=== PATIENT | male | born 1950 | race African-American/Black ===

== ENCOUNTER 2021-04-08 12:01 | Inpatient (IN) | payer OTHER, MEDICAID ==
[~2021-04-08] VITALS: Ht 177.8 cm; Wt 99.3 kg
--- NOTE | 2021-04-08 12:01 | NUR ---
BIBA TO BED 4
[2021-04-08 12:05] VITALS: BP 162/53
--- NOTE | 2021-04-08 12:15 | NUR ---
70 Y/O MALE BIBA FROM HOME C/O BLOOD CLOTS IN URINE X2 DAYS. PT WAS SEEN AT [facility] YESTERDAY FOR SAME COMPLAINT. PT WAS SENT HOME WITH MCF[place]LAND. PT PRESENTS WITH BLOOD IN MCF[place]LAND AND BLOOD COMING OUT OF [place]. PT LAST HAD RADIATION ON PROSTATE 08/01 AND STATES THAT HE HAS INTERMITTENT BLOOD CLOTS. PT REPORTS PAIN DURING URINATION BUT DENIES PAIN AT THIS MOMENT. PT HAS BILATERAL LOWER LEG +2 PITTING EDEMA. PT AMBULATES WITH WALKER. PT A/O X4 WITH EVEN AND UNLABORED RESPIRATIONS. PT IN GOWN ON MANAGER LAN. PMH:BIPASS, VALVE REPLACEMENT, HTN, PROSTATE CANCER, CVA- LEFT SIDED DEFICIT NKDA
--- NOTE | 2021-04-08 12:24 | NUR ---
DR HELTON AT BEDSIDE EVALUATING PT
--- NOTE | 2021-04-08 13:36 | NUR ---
UA SENT TO LAB
--- NOTE | 2021-04-08 13:48 | NUR ---
LAB AT BEDSIDE
[2021-04-08 14:37] LABS: BILIRUBIN,URINE 2+ (NEGATIVE); BLOOD, URINE 3+ (NEGATIVE); LEUKOCYTE ESTERASE ,URINE 2+ (NEGATIVE); NITRITE, URINE POSITIVE (NEGATIVE); PH,URINE 7.5 (5.0-9.0); UGLUCOSE TRACE (NEGATIVE)
[2021-04-08 14:37] LABS: PROTHROMBIN TIME 13.4 secs (10.8-13.4)
[2021-04-08 14:38] LABS: ALBUMIN 2.9 g/dL (3.4-5.0); ANION GAP 14.7 (8-16); ASPARTATE AMINOTRANSFERASE 14 U/L (15-37); BASOPHILS % (AUTO) 0.2 % (0.0-2.0); CHLORIDE 100 mmol/L (98-107); EOSINOPHILS % (AUTO) 0.1 % (0.0-4.0); GLUCOSE 100 mg/dL (74-106); HEMATOCRIT 26.9 % (36-52); HEMOGLOBIN 8.4 g/dL (12.0-18.0); LYMPHOCYTES # (AUTO) 0.6 K/uL (2.0-11.5); LYMPHOCYTES % (AUTO) 3.6 % (20.5-51.1); MEAN CORPUSCULAR HEMOGLOBIN 22 pg (27-31); MEAN CORPUSCULAR HGB CONC 31 g/dL (33-37); MEAN CORPUSCULAR VOLUME 69.4 fL (80-94); MONOCYTES # (AUTO) 1.2 K/uL (0.8-1.0); MONOCYTES % (AUTO) 7.2 % (1.7-9.3); NEUTROPHILS % (AUTO) 88.9 % (42.2-75.2); PLATELET COUNT (AUTO) 331 K/uL (140-450); POTASSIUM 3.7 mmol/L (3.5-5.1); RED BLOOD CELL COUNT(AUTO) 3.87 MIL/uL (4.20-6.10); RED CELL DISTRIBUTION WIDTH 23.8 % (11.6-13.7); SODIUM SERUM 137 mmol/L (136-145); TOTAL BILIRUBIN 0.4 mg/dL (0.0-1.0); WHITE BLOOD COUNT (AUTO) 16.9 K/uL (4.8-10.8)
[2021-04-08 14:40] LABS: UREA NITROGEN, BLOOD 61 mg/dL (7-18)
[2021-04-08 14:42] LABS: APPEARANCE,URINE BLOODY (CLEAR); COLOR,URINE RED (YELLOW)
[2021-04-08 14:52] LABS: RBC,URINE TOO NUMEROUS TO COUN /HPF (0-5)
[2021-04-08] MEDS ORDERED: cefTRIAXone 2,000 MG in DEXTROSE 5% 100 ML IV ONE (14:55)
--- NOTE | 2021-04-08 15:01 | NUR ---
PT RESTING IN BED WITH EVEN AND UNLABORED RESPIRATIONS. PT ON REGISTERED ROUTE ASSOCIATE. VSS. PT GIVEN CUP OF WATER. WILL CONTINUE TO MONITOR
[2021-04-08] MEDS ORDERED: cefTRIAXone 2,000 MG VIAL ONE (15:43)
[2021-04-08] MEDS ORDERED: ACETAMINOPHEN 325 MG TAB PO ONE (15:45)
--- NOTE | 2021-04-08 15:55 | NUR ---
PT C/O PAIN AND REQUESTING PAIN MEDICATION, DR GODOY MADE AWARE
[2021-04-08] MEDS ORDERED: ZOLPIDEM 5 MG TAB PO PRN (16:00)
[2021-04-08] MEDS ORDERED: guaiFENesin DM 200/20 MG-10 ML 10 ML UDC PO PRN (16:00)
[2021-04-08] MEDS ORDERED: ACETAMINOPHEN EXTRA STRENGTH 500 MG TAB PO ONE (16:00)
[2021-04-08] MEDS ORDERED: DOCUSATE SODIUM 100 MG GELCAP PO PRN (16:00)
[2021-04-08] MEDS ORDERED: ONDANSETRON 4 MG/2 ML VIAL IM/IVP PRN (16:00)
[2021-04-08] MEDS: NACL 0.9% 1,000 ML IV SCH (16:00)
[2021-04-08] MEDS ORDERED: ACETAMINOPHEN EXTRA STRENGTH 500 MG TAB ONE (16:02)
--- NOTE | 2021-04-08 16:04 | NUR ---
RAD AT BEDSIDE
[2021-04-08] MEDS ORDERED: NACL 0.9% 1,000 ML IV ONE (16:05)
--- NOTE | 2021-04-08 16:51 | NUR ---
REPORT GIVEN TO FLORA ROMERO FOR ADMISSION TO [facility]
--- NOTE | 2021-04-08 17:00 | NUR ---
Patient will be admitted to care of DR HAN. Admited to [facility]. Will go to room 122A. Belongings list completed. Report to FLORA ROMERO.
[2021-04-08] MEDS ORDERED: RIVA15TA1 PO (17:02)
[2021-04-08] MEDS ORDERED: AMLO5TAB PO (17:02)
[2021-04-08] MEDS ORDERED: LOSA100T1 PO (17:02)
--- NOTE | 2021-04-08 17:15 | NUR ---
RECEIVED REPORT FROM ER NURSE ON PT. AWAITING ARRIVAL TO UNIT.
--- NOTE | 2021-04-08 17:30 | NUR ---
PT ARRIVED TO UNIT. PT CONDITION IS STABLE. PT ARRIVED VIA GURNEY BY ER NURSE. PT HAS PATENT LAC IV ACCESS. PT HAS MCF[place]LAND INSERTED FROM [facility]. ORDER TO INSERT TRIPLE LUMEN CATHETER. PT IS AA&OX4 AND AMBULATORY WITH UNSTEADY GAIT DUE TO PREVIOUS STROKE WITH L-SIDE WEAKNESS. PT CAN AMBULATE WITH WALKER INDEPENDENTLY, OR WITH ASSISTANCE WITHOUT WALKER. SAFETY MEASURES IN PLACE.
[2021-04-08 18:19] LABS: BARBITURATE, URINE NEGATIVE ng/ml (NEG <=200); BENZODIAZEPINE, URINE NEGATIVE ng/mL (NEG <=200); CANNABINOID, URINE NEGATIVE ng/mL (NEG <=50); COCAINE, URINE NEGATIVE ng/mL (NEG <=300); OPIATE, URINE POSITIVE ng/mL (NEG <=2000); PHENCYCLIDINE SCREEN,URINE NEGATIVE ng/mL (NEG <=25)
[2021-04-08 18:24] LABS: CHOL/HDL RATIO 2.7 (1-4.5); FREE T4 (FREE THYROXINE) 1.32 ng/dL (0.76-1.46); MAGNESIUM 2.2 mg/dL (1.8-2.4); PHOSPHORUS 7.4 mg/dL (2.5-4.9); THYROID STIMULATING HORMONE 0.95 uIU/mL (0.34-3.74)
[2021-04-08 18:36] LABS: PROTHROMBIN TIME 12.7 secs (10.8-13.4)
--- NOTE | 2021-04-08 19:31 | NUR ---
GAVE CHANGE OF SHIFT REPORT TO NIGHT NURSE AT BEDSIDE FOR CONTINUITY OF CARE. PT STABLE. DISCUSSED POC.
[2021-04-08] MEDS: HYDROcodone/APAP 7.5/325 MG 1 TAB PO PRN (20:25)
[2021-04-08 20:58] VITALS: BP 139/74
[2021-04-08] MEDS: ACETAMINOPHEN 325 MG TAB PO PRN (21:35)
[2021-04-09] VITALS: BP 128/68
--- NOTE | 2021-04-09 00:05 | NUR ---
I RECEIVED PT IN BED ALERT ORIENTED X4 ON RA CLEAR LUNGS , ON IVF SITE INTACT , SKIN IS INTACT ,I INSERTED A3WAY CMFARLAND CATHETE AND STARTED CONTIOUS BLADDER IRRIGATION FOR HEAMATULIA C/O LOWER ABDOMEN PAIN AND LACK OF SLEEP I GAVE HIM SHWETA AND GAUTAM
[2021-04-09] MEDS: NACL 0.9% 1,000 ML IV SCH ×3 (00:20→17:29)
[2021-04-09] MEDS: HYDROcodone/APAP 7.5/325 MG 1 TAB PO PRN (01:50)
[2021-04-09 04:00] VITALS: BP 130/70
--- NOTE | 2021-04-09 05:27 | NUR ---
PT SLEPT WELL WHEN HIS PAIN WAS WELL CONTROLLED ,VSS AM CARE GIVEN LINEN CHANGED , ON CONTIOS BLADER IRRIGATION URINE IS BLOODY
[2021-04-09 05:51] LABS: BASOPHILS % (AUTO) 0.3 % (0.0-2.0); EOSINOPHILS # (AUTO) 0.1 K/uL (0-0.4); EOSINOPHILS % (AUTO) 0.7 % (0.0-4.0); HEMATOCRIT 22.5 % (36-52); HEMOGLOBIN 7.2 g/dL (12.0-18.0); LYMPHOCYTES # (AUTO) 0.6 K/uL (2.0-11.5); MONOCYTES # (AUTO) 0.9 K/uL (0.8-1.0); MONOCYTES % (AUTO) 8.5 % (1.7-9.3); PLATELET COUNT (AUTO) 292 K/uL (140-450); WHITE BLOOD COUNT (AUTO) 10.1 K/uL (4.8-10.8)
[2021-04-09 05:52] LABS: ANION GAP 13.7 (8-16); CARBON DIOXIDE 24.2 mmol/L (21-32); CHLORIDE 103 mmol/L (98-107); GLUCOSE 82 mg/dL (74-106); SODIUM SERUM 138 mmol/L (136-145)
[2021-04-09] MEDS: POTASSIUM CHLORIDE 10 MEQ TABER PO PRN (06:23)
[2021-04-09 06:25] LABS: LYMPHOCYTES % (AUTO) 5.9 % (20.5-51.1); MEAN CORPUSCULAR HEMOGLOBIN 22 pg (27-31); MEAN CORPUSCULAR HGB CONC 32 g/dL (33-37); MEAN CORPUSCULAR VOLUME 69.5 fL (80-94); NEUTROPHILS # (AUTO) 8.6 K/uL (1.8-7.7); NEUTROPHILS % (AUTO) 84.6 % (42.2-75.2); POTASSIUM 2.9 mmol/L (3.5-5.1); RED BLOOD CELL COUNT(AUTO) 3.24 MIL/uL (4.20-6.10); UREA NITROGEN, BLOOD 67 mg/dL (7-18)
[2021-04-09 06:26] LABS: CREATININE 4.5 mg/dL (0.6-1.3)
--- NOTE | 2021-04-09 06:37 | NUR ---
PT S P IS 2.9 I GAVE HIM KCL 40MEQ AND HER BUN 67 CREAT 4.5 I WILL PASS REPORT TO DAY NURSE TO NOTIFY THE DOCTOR
[2021-04-09 08:00] VITALS: BP 111/51
[2021-04-09] MEDS ORDERED: KCL 20 MEQ/WATER INJ PREMIX 200 ML IV SCH (09:00)
[2021-04-09] MEDS ORDERED: FERR325E14 PO (10:01)
[2021-04-09] MEDS: PANTOPRAZOLE 40 MG TABEC PO SCH (10:39)
--- NOTE | 2021-04-09 10:40 | NUR ---
SCHEDULED MEDICATIONS DUE GIVEN. WILL CONTINUE TO MONITOR.
--- NOTE | 2021-04-09 10:42 | NUR ---
PATIENT HAS BEEN SCREENED AND CATEGORIZED MODERATE NUTRITION RISK. PATIENT WILL BE SEEN WITHIN 3-5 DAYS OF ADMISSION. 04/10/21 04/12/[address]
[2021-04-09 12:08] LABS: T4 (THYROXINE) 8.2 ug/dL (4.5-12.0)
[2021-04-09 16:00] VITALS: BP 117/55
--- NOTE | 2021-04-09 18:21 | NUR ---
TEMP 100.4, TYLENOL GIVEN AT THIS TIME. WILL HOLD OFF ON 1 UNIT PRBC AT THIS TIME UNTIL TEMP DECREASES
[2021-04-09] MEDS: ACETAMINOPHEN 325 MG TAB PO PRN ×2 (18:22→23:36)
--- NOTE | 2021-04-09 19:00 | NUR ---
PATIENT RECEIVED IN BED ALERT AND ORIENTED X 4. RN EDUCATED PATIENT TO MEDICAL PLAN OF CARE, MEDICATION REGIMEN, FALL AND SAFETY INTERVENTIONS AND MEDICAL CARE. [address] [place] CATH IN PLACE. PATIENT REQUIRES 2 PERSON ASSISTANCE. PT CXR NOTED FOR PNEUMONIA. RAPID RESULTS NOTED NEGATIVE. 22G TO RFA. PATENT AND IN PLACE. NO ACUTE DISTRESS NOTED. PATIENT RECEPTIVE TO RN INSTRUCTIONS. WILL CONTINUE WITH MEDICAL PLAN OF CARE.
--- NOTE | 2021-04-09 19:22 | NUR ---
GAVE REPORT TO BUSINESS SYSTEMS ANALYST NURSE FOR CONTINUITY OF CARE. PATIENT IN STABLE CONDITION.
[2021-04-09 23:00] VITALS: BP 126/68
[2021-04-10] MEDS: NACL 0.9% 1,000 ML IV SCH ×3 (00:38→17:23)
[2021-04-10] MEDS: ACETAMINOPHEN 325 MG TAB PO PRN (04:16)
[2021-04-10 06:18] LABS: ANION GAP 16.2 (8-16); CARBON DIOXIDE 22.2 mmol/L (21-32); CHLORIDE 106 mmol/L (98-107); CREATININE 3.5 mg/dL (0.6-1.3); GLUCOSE 108 mg/dL (74-106); POTASSIUM 3.4 mmol/L (3.5-5.1); SODIUM SERUM 141 mmol/L (136-145)
[2021-04-10 06:25] LABS: BASOPHILS % (AUTO) 0.3 % (0.0-2.0); EOSINOPHILS # (AUTO) 0.3 K/uL (0-0.4); EOSINOPHILS % (AUTO) 2.4 % (0.0-4.0); HEMATOCRIT 26.7 % (36-52); HEMOGLOBIN 8.7 g/dL (12.0-18.0); LYMPHOCYTES # (AUTO) 0.7 K/uL (2.0-11.5); LYMPHOCYTES % (AUTO) 6.3 % (20.5-51.1); MEAN CORPUSCULAR HEMOGLOBIN 23 pg (27-31); MEAN CORPUSCULAR HGB CONC 33 g/dL (33-37); MEAN CORPUSCULAR VOLUME 70.3 fL (80-94); MONOCYTES % (AUTO) 8.4 % (1.7-9.3); NEUTROPHILS # (AUTO) 9.4 K/uL (1.8-7.7); NEUTROPHILS % (AUTO) 82.6 % (42.2-75.2); PLATELET COUNT (AUTO) 336 K/uL (140-450); RED CELL DISTRIBUTION WIDTH 24.4 % (11.6-13.7); WHITE BLOOD COUNT (AUTO) 11.4 K/uL (4.8-10.8)
[2021-04-10] MEDS: HYDROcodone/APAP 7.5/325 MG 1 TAB PO PRN ×2 (06:41→14:59)
--- NOTE | 2021-04-10 07:45 | NUR ---
Patient's urinary cath is clogged and not draining. Resolved with milking cath and repositioning patient. Small blood clots drained to collection bag. No bladder distention noted.
[2021-04-10 08:00] VITALS: BP 151/72
[2021-04-10 08:06] LABS: UREA NITROGEN, BLOOD 71 mg/dL (7-18)
[2021-04-10] MEDS: ATORVASTATIN 20 MG TAB PO SCH ×3 (09:00→21:46)
[2021-04-10] MEDS: PANTOPRAZOLE 40 MG TABEC PO SCH (09:04)
[2021-04-10] MEDS: FERROUS SULFATE 325 MG TABEC PO SCH (09:04)
[2021-04-10] MEDS: amLODIPine 5 MG TAB PO SCH (09:04)
[2021-04-10] MEDS: LOSARTAN 50 MG TAB PO SCH (09:04)
--- NOTE | 2021-04-10 13:51 | NUR ---
MULTIPLE ATTEMPTS TO SEE PATIENT FOR PHYSICAL THERAPY TREATMENT HOWEVER PATIENT CONTINUES REFUSAL STATING HE IS FEELING TOO TIRED AND HAS NOT SLEPT IN THE PAST 3 DAYS. DID NOT EAT LUNCH AND REQUESTS MORE TIME SLEEPING. WILL FOLLOW UP TOMORROW IF APPROPRIATE; RN AWARE.
--- NOTE | 2021-04-10 15:00 | NUR ---
Luna not draining. Attempted to milk cath and pull clots, still not draining. Dr Knapp with order to change 3-way luna. Old cath removed, placed new 3-way luna cath via aseptic technique. Connected to CBI with NS. Cath draining well with dark red output and few blood clots. No bladder distention. Patient denies any discomfort.
--- NOTE | 2021-04-10 15:57 | NUR ---
DC PLANNING: ADRIANA SPOKE WITH THE PATIENT AT BEDSIDE. THE PATIENT LIVES ALONE IN A GROUND FLOOR APARTMENT, AND HAS A HISTORY OF FALLS WITH INJURIES. HE HAS BEEN AT [facility] IN THE PAST THIS IS WHERE HIS PCP DR RODRIGUEZ FOLLOWS. THE PATIENT HAS NO H/O HOME HEALTH AND HAS DME OF A FWW, CAN AND WC. HE STILL DRIVES, AND WAS AMBULATING 2 BLOCKS PRIOR TO NOT FEELING WELL. HE SEES HIS PCP ONCE A MONTH AND SEES REGAN SHANKAR FOR HIS UROLOGIC MANAGEMENT. P.T. RECOMMENDS THAT THE PATIENT GOES TO [facility] FOR CONTINUED REHAB, THE PATIENT IS WILLING BUT WANTS TO GO TO [facility] SO HIS PCP CAN FOLLOW. ADRIANA SENT A REFERRAL TO [facility] AND MADE THEM AWARE THAT THE PATIENT HAS A FC WITH CBI. ADRIANA WILL FOLLOW FOR NEEDS. Addendum: 04/11/21 at 1125 by Franci Paulino CM DC PLANNING: ADRIANA SPOKE WITH THE PATIENT AT BEDSIDE. THE PATIENT NOW DOES NOT WANT TO GO TO SNF AND WANTS TO GO HOME, BUT IS WILLING TO HAVE HOME HEALTH FOLLOW HIM. ADRIANA SPOKE WITH HIS UROLOGIST' OFFICE, DR RAMILA SHANKAR AND ASKED THAT HE CALL THE ATTENDING MD TO DISCUSS THE PATIENTS PLAN OF CARE AFTER DC. THE PATIENT HAS DESI HEMATURIA AND IS ON CBI, PLAN IS FOR HIM TO STAY UNTIL THE HEMATURIA HAS IMPROVED OR RESOLVED AND TO THEN DC HOME WITH HOME HEALTH RN AND P.T.. ADRIANA WILL FOLLOW FOR NEEDS. Addendum: 04/14/21 at 1520 by Franci Paulino CM DC PLANNING: THE PATIENT CONTINUES TO HAVE DESI HEMATURIA AND LEAKING FROM HIS FC. PER DR. HAN THE PATIENT IS NOW WILLING TO GO TO SNF. CM REFAXED THE PATIENTS CLINICAL INFORMATION TO [facility], PATIENT ACCEPTED TO ROOM 7A, [facility] WILL PROVIDE TRANSPORT WITH BEATER TENDER AT 7:30. BEATER TENDER ENDORSED TO PATIENTS NICK BARNHART. ADRIANA WILL FOLLOW FOR NEEDS.
[2021-04-10 16:00] VITALS: BP 148/70
--- NOTE | 2021-04-10 18:41 | NUR ---
Total NS flushed for CBI 6L. Total luna output 7250. Luna currently in place with CBI, cath draining well with hematuria present, no blood clots. Patient resting in bed, awake, no c/o pain/discomfort, no bladder distention.
--- NOTE | 2021-04-10 20:00 | NUR ---
PATIENT WAS RECEIVED IN BED ALERT AND COHERENT, NO RESPIRATORY DISTRESS, DENIES ANY PAIN.
--- NOTE | 2021-04-10 21:00 | NUR ---
ALL DUE MEDS GIVEN, TOLERATED WELL, PATIENT REFUSE TO TAKE HIS FULL DOSE OF STATIN 40 MG, HE SAID HE IS ONLY TAKING 20 MG, BECAUSE THAT IS WHAT HE TAKING AT HOME, PATIENT WAS ALERT AND ORIENTED X 4. RN EXPLAINED TO THE PATIENT X3 THAT HE NEEDS TO TAKE WHAT THE DOCTOR PRESCRIBED IN THE HOSPITAL DO MAKE HIS CONDITION IMPROVED, BUT STILL HE DECIDED TO TAKE ONLY 20 MG CHARGE NURSE GARY AWARE, SHE HEARED AND WITNESSED THE WHOLE CONVERSATION, WHILE SHE IS HELPING TO OBTAINED A NEW IV ACCESS TO THE PATIENT'S RIGHT FA, SUCCESSFULLY OBTAINED. NS INFUSING WELL AT 120 ML/HOUR.
[2021-04-11] VITALS: BP 144/58
--- NOTE | 2021-04-11 | NUR ---
PATIENT WAS CALMLY ASLEEP AT THIS TIME, REGULAR AND EQUAL RISE AND FALL OF CHEST.
--- NOTE | 2021-04-11 02:00 | NUR ---
PATIENT WAS CALMLY ASLEEP AT THIS TIME, REGULAR AND EQUAL RISE AND FALL OF CHEST.
[2021-04-11] MEDS: NACL 0.9% 1,000 ML IV SCH ×2 (04:00→10:43)
--- NOTE | 2021-04-11 04:00 | NUR ---
VITAL SIGNS ARE WITHIN THE NORMAL LIMIT.
--- NOTE | 2021-04-11 07:26 | NUR ---
ALL REPORTS WERE GIVEN, TRANSFER OF CARE ENDORSED.
--- NOTE | 2021-04-11 07:30 | NUR ---
RECEIVED PATIENT FROM SUPERVISOR ASSEMBLY STOCK NURSE FOR CONTINUITY OF CARE. PT IS AOX4, ABLE TO MAKE NEEDS KNOWN. RESPIRATIONS EVEN AND UNLABORED. ON ROOM AIR AND NO DISTRESS NOTED. SKIN IS INTACT. IV IS INTACT AND PATENT INFUSING FLUIDS WELL. [address] [place] CATH IN PLACE AND IS CONTINUOUSLY IRRIGATING. DENIES PAIN AT THE MOMENT. PLAN OF CARE DISCUSSED. SAFETY PRECAUTIONS IN PLACE. CALL LIGHT WITHIN REACH. WILL CONTINUE TO MONITOR.
[2021-04-11 08:00] VITALS: BP 156/79
--- NOTE | 2021-04-11 09:45 | NUR ---
ALL SCHEDULED MEDS GIVEN. PT IS STABLE. NO DISTRESS NOTED. WILL CONTINUE TO MONITOR.
[2021-04-11] MEDS: LOSARTAN 50 MG TAB PO SCH (09:54)
[2021-04-11] MEDS: PANTOPRAZOLE 40 MG TABEC PO SCH (09:54)
[2021-04-11] MEDS: FERROUS SULFATE 325 MG TABEC PO SCH (09:54)
[2021-04-11] MEDS: amLODIPine 5 MG TAB PO SCH (09:54)
[2021-04-11] MEDS: HYDROcodone/APAP 7.5/325 MG 1 TAB PO PRN (12:15)
--- NOTE | 2021-04-11 12:30 | NUR ---
MD AT BEDSIDE. ASSISTING MD WITH REPLACING AND IRRIGATING PATIENT [address] [place] CATH.
--- NOTE | 2021-04-11 14:50 | NUR ---
CHECKED ON PATIENT. PT IS STABLE. NO DISTRESS NOTED. WILL CONTINUE TO MONITOR.
[2021-04-11 16:00] VITALS: BP 141/64
--- NOTE | 2021-04-11 16:20 | NUR ---
04/11/21 RD INITIAL ASSESSMENT COMPLETED PLEASE REFER TO NUTRITION ASSESSMENT UNDER CARE ACTIVITY FOR ESTIMATED NUTRITIONAL NEEDS. 1. CONTINUE CARDIAC DIET TOLERATED 2. RECOMMEND ENSURE ONCE DAILY 3. RD TO FOLLOW-UP 2-3 DAYS, HIGH RISK STEWART KELLOGG RD
--- NOTE | 2021-04-11 16:30 | NUR ---
CHECKED ON PATIENT. PT IS STABLE. NO DISTRESS NOTED. WILL CONTINUE TO MONITOR.
--- NOTE | 2021-04-11 19:27 | NUR ---
ENDORSED TO COUPON AND BOND COLLECTION CLERK NURSE FOR CONTINUITY OF CARE. PT IS STABLE.
--- NOTE | 2021-04-11 20:15 | NUR ---
PT IS ON BED.RESP.UNLABORED.IVF INFUSING WELL.3 WAY F/C PATENT.CONT.IRRIGATION IS IN PROGRESS.AND HAS PINKISH COLOR OUT PUT.NO C/O PAIN NOW.WILL CONT.MONITORING.
[2021-04-11] MEDS: ATORVASTATIN 20 MG TAB PO SCH (21:19)
--- NOTE | 2021-04-11 23:13 | NUR ---
PT REFUSED TO TAKE 40MG LIPITOR.HE SAID HE IS TAKING THAT ONLY 20MG FOR 20 YEARS.SO 20 MG OF LIPITOR RETURNED.
[2021-04-12] MEDS: NACL 0.9% 1,000 ML IV SCH ×4 (00:12→20:00)
--- NOTE | 2021-04-12 01:53 | NUR ---
BLADDER IRRIGATION IS IN PROGRESS.HAS NO MORE HEMATURIA AT THIS TIME.
[2021-04-12 04:00] VITALS: BP 148/60
[2021-04-12 06:16] LABS: BASOPHILS % (AUTO) 0.3 % (0.0-2.0); EOSINOPHILS # (AUTO) 0.2 K/uL (0-0.4); EOSINOPHILS % (AUTO) 2.5 % (0.0-4.0); HEMATOCRIT 23.8 % (36-52); HEMOGLOBIN 7.8 g/dL (12.0-18.0); LYMPHOCYTES # (AUTO) 0.6 K/uL (2.0-11.5); MEAN CORPUSCULAR HEMOGLOBIN 23 pg (27-31); MEAN CORPUSCULAR HGB CONC 33 g/dL (33-37); MEAN CORPUSCULAR VOLUME 70.3 fL (80-94); MONOCYTES # (AUTO) 0.6 K/uL (0.8-1.0); MONOCYTES % (AUTO) 7.3 % (1.7-9.3); NEUTROPHILS # (AUTO) 6.8 K/uL (1.8-7.7); NEUTROPHILS % (AUTO) 82.9 % (42.2-75.2); PLATELET COUNT (AUTO) 356 K/uL (140-450); RED BLOOD CELL COUNT(AUTO) 3.38 MIL/uL (4.20-6.10); RED CELL DISTRIBUTION WIDTH 23.8 % (11.6-13.7); WHITE BLOOD COUNT (AUTO) 8.2 K/uL (4.8-10.8)
--- NOTE | 2021-04-12 06:27 | NUR ---
PT IS STABLE.NO DISTRESS NOTED.DUE TO HAVING BLADDER IRRIGATION CAN NOT COUNT OUT PUT.NO MORE HEMATURIA IRRIGATION OUT PUT IS CLEAR.
[2021-04-12 07:01] LABS: ANION GAP 11.5 (8-16); CARBON DIOXIDE 27.2 mmol/L (21-32); CHLORIDE 111 mmol/L (98-107); CREATININE 1.5 mg/dL (0.6-1.3); GLUCOSE 99 mg/dL (74-106); SODIUM SERUM 147 mmol/L (136-145); UREA NITROGEN, BLOOD 31 mg/dL (7-18)
--- NOTE | 2021-04-12 07:30 | NUR ---
RECEIVED PATIENT FROM IRRIGATIONIST DESIGNER NURSE FOR CONTINUITY OF CARE. PT IS AOX4, ABLE TO MAKE NEEDS KNOWN. RESPIRATIONS EVEN AND UNLABORED. ON ROOM AIR AND NO DISTRESS NOTED. SKIN IS INTACT. IV IS INTACT AND PATENT INFUSING FLUIDS WELL. [address] [place] CATH IN PLACE AND IS CONTINUOUSLY IRRIGATING. DENIES PAIN AT THE MOMENT. PLAN OF CARE DISCUSSED. SAFETY PRECAUTIONS IN PLACE. CALL LIGHT WITHIN REACH. WILL CONTINUE TO MONITOR.
[2021-04-12 07:41] LABS: POTASSIUM 2.7 mmol/L (3.5-5.1)
[2021-04-12 08:00] VITALS: BP 159/60
[2021-04-12] MEDS ORDERED: POTASSIUM CHLORIDE 40 MEQ, LIDOCAINE MPF 1% 25 MG in NACL 0.9% 250 ML IV SCH ×2 (09:30→14:00)
--- NOTE | 2021-04-12 09:55 | NUR ---
ALL SCHEDULED MEDS GIVEN. PT IS STABLE. NO DISTRESS NOTED. WILL CONTINUE TO MONITOR.
[2021-04-12] MEDS: FERROUS SULFATE 325 MG TABEC PO SCH (09:57)
[2021-04-12] MEDS: amLODIPine 5 MG TAB PO SCH (09:57)
[2021-04-12] MEDS: LOSARTAN 50 MG TAB PO SCH (09:57)
[2021-04-12] MEDS: PANTOPRAZOLE 40 MG TABEC PO SCH (09:57)
--- NOTE | 2021-04-12 11:30 | NUR ---
CHECKED ON PATIENT. PT IS STABLE. NO DISTRESS NOTED. WILL CONTINUE TO MONITOR.
--- NOTE | 2021-04-12 13:20 | NUR ---
IRRIGATED PATIENT'S MCF[place] TO CLEAR CLOTS. PT TOLERATED PROCEDURE WELL.
[2021-04-12] MEDS: HYDROcodone/APAP 7.5/325 MG 1 TAB PO PRN (16:43)
--- NOTE | 2021-04-12 16:43 | NUR ---
PRN PAIN MEDICATIONS WERE GIVEN. PT COMPLAINED OF PAIN 12/19.
[2021-04-12 17:36] VITALS: BP 145/68
--- NOTE | 2021-04-12 19:30 | NUR ---
ENDORSED TO HOST NURSE FOR CONTINUITY OF CARE. PT IS STABLE.
[2021-04-12 20:00] VITALS: BP 156/65
[2021-04-12] MEDS: ATORVASTATIN 20 MG TAB PO SCH (21:34)
[2021-04-13 04:00] VITALS: BP 158/65
[2021-04-13] MEDS: NACL 0.9% 1,000 ML IV SCH ×3 (06:03→23:03)
[2021-04-13 06:23] LABS: ANION GAP 9.9 (8-16); CARBON DIOXIDE 27.9 mmol/L (21-32); CHLORIDE 111 mmol/L (98-107); CREATININE 1.3 mg/dL (0.6-1.3); GLUCOSE 89 mg/dL (74-106); SODIUM SERUM 146 mmol/L (136-145); UREA NITROGEN, BLOOD 21 mg/dL (7-18)
[2021-04-13 06:25] LABS: POTASSIUM 2.8 mmol/L (3.5-5.1)
[2021-04-13 06:26] LABS: BASOPHILS % (AUTO) 0.3 % (0.0-2.0); EOSINOPHILS # (AUTO) 0.3 K/uL (0-0.4); EOSINOPHILS % (AUTO) 4.2 % (0.0-4.0); HEMATOCRIT 24.1 % (36-52); HEMOGLOBIN 7.9 g/dL (12.0-18.0); LYMPHOCYTES # (AUTO) 0.7 K/uL (2.0-11.5); LYMPHOCYTES % (AUTO) 10.5 % (20.5-51.1); MEAN CORPUSCULAR HEMOGLOBIN 23 pg (27-31); MEAN CORPUSCULAR HGB CONC 33 g/dL (33-37); MEAN CORPUSCULAR VOLUME 70.9 fL (80-94); MONOCYTES # (AUTO) 0.6 K/uL (0.8-1.0); MONOCYTES % (AUTO) 8.7 % (1.7-9.3); NEUTROPHILS # (AUTO) 4.9 K/uL (1.8-7.7); NEUTROPHILS % (AUTO) 76.3 % (42.2-75.2); PLATELET COUNT (AUTO) 401 K/uL (140-450); RED CELL DISTRIBUTION WIDTH 23.8 % (11.6-13.7); WHITE BLOOD COUNT (AUTO) 6.4 K/uL (4.8-10.8)
[2021-04-13] MEDS: POTASSIUM CHLORIDE 10 MEQ TABER PO PRN (07:33)
--- NOTE | 2021-04-13 07:46 | NUR ---
Assumed care last night. A/O x 4. Martín charge nurse RN was able to titrate the CBI efficiently. The urine has cleared up. Pt has had no pain 2/2 clot formation while irrigating. Has a critical K this AM = 2.8. Dr. Wharton contacted. Received new orders. Manage with PRN of 40 MEQ, plus 40 MEQ K rider. Paxton RN will take care of it.
--- NOTE | 2021-04-13 07:47 | NUR ---
RECEIVED PATIENT FROM GRAPHIC ILLUSTRATOR NURSE FOR CONTINUITY OF CARE. PT IS AOX4, ABLE TO MAKE NEEDS KNOWN. RESPIRATIONS EVEN AND UNLABORED. ON ROOM AIR AND NO DISTRESS NOTED. SKIN IS INTACT. IV IS INTACT AND PATENT INFUSING FLUIDS WELL. [address] [place] CATH IN PLACE AND IS CONTINUOUSLY IRRIGATING. DENIES PAIN AT THE MOMENT. PLAN OF CARE DISCUSSED. SAFETY PRECAUTIONS IN PLACE. CALL LIGHT WITHIN REACH. WILL CONTINUE TO MONITOR.
[2021-04-13 08:00] VITALS: BP 146/69
[2021-04-13] MEDS ORDERED: POTASSIUM CHLORIDE 40 MEQ, LIDOCAINE MPF 1% 25 MG in NACL 0.9% 250 ML IV SCH ×2 (09:00→14:00)
[2021-04-13] MEDS: PANTOPRAZOLE 40 MG TABEC PO SCH (09:41)
[2021-04-13] MEDS: amLODIPine 5 MG TAB PO SCH (09:42)
[2021-04-13] MEDS: FERROUS SULFATE 325 MG TABEC PO SCH (09:42)
[2021-04-13] MEDS: LOSARTAN 50 MG TAB PO SCH (09:42)
[2021-04-13] MEDS: HYDROcodone/APAP 7.5/325 MG 1 TAB PO PRN (09:42)
--- NOTE | 2021-04-13 09:50 | NUR ---
ALL SCHEDULED MEDS GIVEN. PT IS STABLE. NO DISTRESS NOTED. WILL CONTINUE TO MONITOR.
--- NOTE | 2021-04-13 11:45 | NUR ---
CHECKED ON PATIENT. PATIENT IS STABLE. NO DISTRESS NOTED. WILL CONTINUE TO MONITOR.
--- NOTE | 2021-04-13 13:22 | NUR ---
ADMINISTERED SCHEDULED MEDICATIONS. PT IS STABLE. DENIES PAIN. WILL CONTINUE TO MONITOR.
--- NOTE | 2021-04-13 15:30 | NUR ---
CHECKED ON PATIENT. PT IS STABLE. NO DISTRESS NOTED. WILL CONTINUE TO MONITOR.
[2021-04-13 16:00] VITALS: BP 151/63
--- NOTE | 2021-04-13 17:30 | NUR ---
EMPTIED PATIENT'S MCF[place] CATH. YELLOW URINE NOTED. NO CLOTS WERE NOTED. DENIES PAIN. WILL CONTINUE TO MONITOR.
--- NOTE | 2021-04-13 19:30 | NUR ---
ENDORSED TO CHEMICAL TECHNICIAN NURSE FOR CONTINUITY OF CARE. PT IS STABLE.
[2021-04-13 20:00] VITALS: BP 156/67
[2021-04-13] MEDS: ATORVASTATIN 20 MG TAB PO SCH (23:03)
[2021-04-14 04:00] VITALS: BP 104/65
[2021-04-14] MEDS: NACL 0.9% 1,000 ML IV SCH ×2 (05:20→11:10)
[2021-04-14 06:36] LABS: BASOPHILS % (AUTO) 0.5 % (0.0-2.0); EOSINOPHILS # (AUTO) 0.3 K/uL (0-0.4); EOSINOPHILS % (AUTO) 3.9 % (0.0-4.0); HEMATOCRIT 25.2 % (36-52); HEMOGLOBIN 8.1 g/dL (12.0-18.0); LYMPHOCYTES # (AUTO) 0.7 K/uL (2.0-11.5); LYMPHOCYTES % (AUTO) 9.6 % (20.5-51.1); MEAN CORPUSCULAR HEMOGLOBIN 23 pg (27-31); MEAN CORPUSCULAR HGB CONC 32 g/dL (33-37); MEAN CORPUSCULAR VOLUME 71.2 fL (80-94); MONOCYTES # (AUTO) 0.6 K/uL (0.8-1.0); MONOCYTES % (AUTO) 8.6 % (1.7-9.3); NEUTROPHILS # (AUTO) 5.5 K/uL (1.8-7.7); NEUTROPHILS % (AUTO) 77.4 % (42.2-75.2); PLATELET COUNT (AUTO) 379 K/uL (140-450); RED BLOOD CELL COUNT(AUTO) 3.54 MIL/uL (4.20-6.10); RED CELL DISTRIBUTION WIDTH 23.6 % (11.6-13.7); WHITE BLOOD COUNT (AUTO) 7.1 K/uL (4.8-10.8)
[2021-04-14 06:52] LABS: ANION GAP 13.2 (8-16); CARBON DIOXIDE 24.7 mmol/L (21-32); CHLORIDE 111 mmol/L (98-107); CREATININE 1.3 mg/dL (0.6-1.3); GLUCOSE 88 mg/dL (74-106); SODIUM SERUM 146 mmol/L (136-145); UREA NITROGEN, BLOOD 19 mg/dL (7-18)
--- NOTE | 2021-04-14 07:20 | NUR ---
RECEIVED BEDSIDE REPORT FROM NIGHT NURSE FOR CONTINUITY OF CARE. PT IS SLEEPING IN NO ACUTE DISTRESS. CHEST RISE AND FALL SYMMETRICAL WITH BREATHING UNLABORED. IV INTACT ON LEFT HAND. SKIN IS WARM AND DRY AND INTACT. WITH [place] CATHETER INSERTED DRAINING LIGHT YELLOW URINE. ALL SAFETY MEASURES IN PLACE. CALL LIGHT WITHIN REACH. WILL CONTINUE TO MONITOR.
--- NOTE | 2021-04-14 07:25 | NUR ---
Assumed care last night. A/O x 4. He gets around with a walker. Stand by assist only. On CBI. Urine was blood tinged initially. It is more yellow than blood tinged. Will endorse care to Am RN.
[2021-04-14 08:21] LABS: POTASSIUM 2.9 mmol/L (3.5-5.1)
--- NOTE | 2021-04-14 08:29 | NUR ---
RECEIVED CRITICAL LAB REPORT FROM Earnest. MESSAGED DR. HAN TO INFORM HIM THAT POTASSIUM LEVEL IS 2.9. DOCTOR IS AWARE.
[2021-04-14] MEDS ORDERED: POTASSIUM CHLORIDE 40 MEQ, LIDOCAINE MPF 1% 25 MG in NACL 0.9% 250 ML IV SCH (09:30)
--- NOTE | 2021-04-14 09:30 | NUR ---
PT SITTING IN BED AWAKE. DENIES ANY PAIN. [place] INTACT AND DRAINING WELL. ALL SAFETY MEASURES IN PLACE. CALL LIGHT WITHIN REACH.
[2021-04-14] MEDS: amLODIPine 5 MG TAB PO SCH (09:45)
[2021-04-14] MEDS: FERROUS SULFATE 325 MG TABEC PO SCH (09:45)
[2021-04-14] MEDS: LOSARTAN 50 MG TAB PO SCH (09:46)
[2021-04-14] MEDS: PANTOPRAZOLE 40 MG TABEC PO SCH (09:46)
--- NOTE | 2021-04-14 09:52 | NUR ---
PT GIVEN GEETAIDER 40MEQ IVPB FOR K LEVEL OF 2.9. PT ON TELE MONITOR. MEDICATION EDUCATION PROVIDED AND PT VERBALIZED UNDERSTANDING.
--- NOTE | 2021-04-14 11:40 | NUR ---
PT IS AWAKE AND ALERT. PT HAD A BOWEL MOVEMENT. IV IS INTACT AND INFUSING WELL. [place] IS INTACT AND DRAINING LIGHT YELLOW URINE. DENIES ANY PAIN. CALL LIGHT WITHIN REACH. WILL CONTINUE TO MONITOR PT.
[2021-04-14 12:00] VITALS: BP 156/71
[2021-04-14] MEDS ORDERED: POTA10TE30 PO (12:53)
[2021-04-14] MEDS ORDERED: CEPH-588 PO (12:56)
--- NOTE | 2021-04-14 13:50 | NUR ---
PT LYING IN BED. NO COMPLAINTS AT THIS TIME. CBI IS DRAINING WELL. CALL LIGHT WITHIN REACH. ALL SAFETY MEASURES IN PLACE. PT IS STABLE.
--- NOTE | 2021-04-14 13:58 | NUR ---
RECEIVED CALL FROM [facility] PRODUC[facility]. PT WILL BE TRANSFERRED TO [facility] BED 7A. TRANSPORTATION TO BE ARRANGED. SYSTEM WILL BE DOWN FOR AN HOUR.
--- NOTE | 2021-04-14 14:09 | NUR ---
04/14/21 RD FOLLOW UP COMPLETED PLEASE REFER TO NUTRITION ASSESSMENT UNDER CARE ACTIVITY FOR ESTIMATED NUTRITIONAL NEEDS. 1. CONTINUE CARDIAC DIET TOLERATED 2. CONTINUE ENSURE ONCE DAILY 3. RD TO FOLLOW UP 3-5 DAYS, MODERATE RISK STEWART KELLOGG RD
--- NOTE | 2021-04-14 14:26 | NUR ---
DC PLANNING PATIENT IS A 70-YEAR-OLD MALE ADMITTED ON 04/08/2021 TO THE [facility]/ED DUE TO PATIENT COMPLAINS OF HEMATURIA. COSTUME CUTTER MET WITH PATIENT AT BEDSIDE TO DISCUSS AND GATHER HIS COLLATERAL INFORMATION. PER PATIENT HE LIVES ALONE AND INDEPENDENT AT HIS APARTMENT IN [place]. PATIENT REPORTED HAVING ADVANCE DIRECTIVES AND WAS INTERESTED ON GETTING INFORMATION PACKET PROVIDED BY SW AT THE TIME OF VISIT. PATIENT REPORTED THAT HIS EMERGENCY CONTACT IS HIS MIXING TANK OPERATOR KRYSTAL ALEGRE AT . PER PATIENT HE HAS A WALKER AND A WHEELCHAIR HIS DME AT HOME. PATIENT ALSO REPORTED NOT HAVING ANY ISSUES GETTING OR TAKING HIS MEDICATIONS AT A LOCAL [facility] IN [place]. PATIENT STATED THAT HIS PRIMARY DOCTOR GUILLE AT [place] OFFICE AND REPORTED THAT HIS LAST VISIT WAS ABOUT 1 MONTH AGO. PATIENT REPORTED THAT HE WOULD LIKE TO GO BACK TO HIS APARTMENT AFTER HIS DISCHARGE FROM [facility]; HOWEVER IS WILLING TO CONSIDER A SNF IF MD HAS THAT HIS RECOMMENDATIONS FOR HIM TO DC TO SNF LONG HE CAN RETURNED BACK HOME AFTER HIS TREATMENT. SW WILL FOLLOW UP NEEDED.
--- NOTE | 2021-04-14 14:31 | NUR ---
MESSAGED UROLOGIST DR. SHANKAR TO INFORM HIM THAT SMALL AMOUNT OF BLOOD IS COMING FROM THE [place]THRA AND ONLY PINK TINGED FLUID THROUGH THE [place] WITH CBI RUNNING. NO REPLY YET. ALSO INFORMED DR. HAN OF THIS INFORMATION AND ASKED BOTH DOCTORS IF IT IS STILL OKAY TO D/C TO SNF. ALSO ASKED IF CBI WILL BE CONTINUED AT SNF OR ONLY [place] MANAGEMENT NEEDED. WILL WAIT FOR RESPONSE.
[2021-04-14 16:03] LABS: ANION GAP 12.8 (8-16); CARBON DIOXIDE 26.7 mmol/L (21-32); CHLORIDE 110 mmol/L (98-107); CREATININE 1.3 mg/dL (0.6-1.3); GLUCOSE 108 mg/dL (74-106); POTASSIUM 3.5 mmol/L (3.5-5.1); SODIUM SERUM 146 mmol/L (136-145); UREA NITROGEN, BLOOD 21 mg/dL (7-18)
--- NOTE | 2021-04-14 16:08 | NUR ---
PT SITTING IN BED. NOT IN ANY ACUTE DISTRESS. CBI IS INTACT AND DRAINING WELL. CALL LIGHT WITHIN REACH. ALL SAFETY MEASURES IN PLACE. WILL CONTINUE TO MONITOR.
[2021-04-14 17:57] VITALS: BP 156/71
--- NOTE | 2021-04-14 18:15 | NUR ---
REPORT FOR TRANSFER WAS GIVEN TO JOSE ROMERO AT [facility]. EXPLAINED CONDITION OF PATIENT AND PLAN FOR CONTINUOUS BLADDER IRRIGATION. DISCHARGE INSTRUCTIONS PROVIDED AND SHE VERBALIZED UNDERSTANDING. ALL QUESTIONS ANSWERED.
--- NOTE | 2021-04-14 19:00 | NUR ---
TRANSPORTATION HERE TO OPTICAL ASSISTANT PATIENT. PT WAS ASSISTED TO THE WHEELCHAIR. DISCHARGE INSTRUCTIONS WERE GIVEN AND PT VERBALIZED UNDERSTANDING. PT IS AWAKE AND ALERT. A&OX4. ON RA WITH BREATHING UNLABORED. [place] CATH IN PLACE; 3 WAY [place] CATH. CBI PORT WAS PLUGGED FOR TRANSPORT. [place] CATH IS DRAINING CLEAR URINE. PT IS STABLE. WRISTBANDS WERE REMOVED. IV WAS REMOVED AND BLEEDING WAS CONTROLLED. ALL BELONGINGS WERE TAKEN WITH PT INCLUDING COPY OF CHART. PT IS DISCHARGED.
--- NOTE | 2021-04-14 19:10 | NUR ---
RECEIVED CALL FROM RN AT [facility] ASKING IF WE SENT AN IRRIGATION BAG WITH PATIENT. NO BAG WAS PROVIDED THE PREVIOUS RN GIVEN REPORT DID NOT ASK. PT'S CBI PORT WAS PLUGGED PER PROTOCOL AND PT WAS SENT WITH [place] CATHETER.
== END 2021-04-14 19:00 | DRG 871 ==
LOC: MED 12:01 → MTU 15:58
PROVIDERS: ADMIT Family Medicine; ATTEND Family Medicine
PROC: 30233N1 Transfusion of Nonautologous Red Blood Cells into Peripheral Vein, Percutaneous Approach (ICD-10-PCS; 2021-04-09)
PROC: 3E1K78Z Irrigation of Genitourinary Tract using Irrigating Substance, Via Natural or Artificial Opening (ICD-10-PCS; principal; 2021-04-10)
DX: A41.9 Sepsis, unspecified organism (principal); N17.0 Acute kidney failure with tubular necrosis; E43 Unspecified severe protein-calorie malnutrition; N13.6 Pyonephrosis; E86.0 Dehydration; I48.91 Unspecified atrial fibrillation; I10 Essential (primary) hypertension; R31.0 Gross hematuria; E87.6 Hypokalemia; D63.8 Anemia in other chronic diseases classified elsewhere; C61 Malignant neoplasm of prostate; Z20.822 Contact with and (suspected) exposure to COVID-19; I25.10 Atherosclerotic heart disease of native coronary artery without angina pectoris; Z95.1 Presence of aortocoronary bypass graft; Z95.2 Presence of prosthetic heart valve; Z79.01 Long term (current) use of anticoagulants; Z86.73 Personal history of transient ischemic attack (TIA), and cerebral infarction without residual deficits; Z92.3 Personal history of irradiation; Z68.31 Body mass index [BMI] 31.0-31.9, adult; Z85.51 Personal history of malignant neoplasm of bladder; Z79.899 Other long term (current) drug therapy
CPT/HCPCS: 36415; 71045; 80048; 80053; 80305; 81001; 82150; 82948; 83036; 83690; 83735; 83880; 84100; 84436; 84439; 84443; 84479; 84484; 85025; 85610; 85730; 86886; 86900; 86901; 86920; 87040; 87086; 96365; 97110; 97112; 97116; 97163-GP; 97530; 99291; J0696; J2001; J3480; J7030; J7060; P9016; Q0092